=== PATIENT | female | born 1955 | race Hispanic/Latino ===

== ENCOUNTER 2018-02-16 08:04 | Day surgery (SDC) | payer MEDICARE ==
[~2018-02-16] VITALS: Ht 165.1 cm; Wt 69.0 kg
[~2018-02-16 08:04] MED LIST: NAPR-1000 PO; SODIUM CHLORIDE 0.9% 1000ML 1,000 ML IV ONE; VITA1CAP85 PO
[2018-02-16 09:16] VITALS: BP 111/64
[2018-02-16] MEDS ORDERED: LIDOCAINE HCL 2% 20ML ONE (10:02)
[2018-02-16] MEDS ORDERED: PROPOFOL 10 MG/ML 20ML VIAL IV ONE (10:02)
[2018-02-16 10:54] VITALS: BP 87/48
[2018-02-16 11:00] VITALS: BP 95/50
[2018-02-16 11:05] VITALS: BP 105/57
== END 2018-02-16 11:25 | disposition home or self-care (01) ==
LOC: DAH 08:04 → ENDO 08:04
PROVIDERS: ATTEND Internal Medicine
DX: K29.50 Unspecified chronic gastritis without bleeding (principal); K31.89 Other diseases of stomach and duodenum; K21.0 Gastro-esophageal reflux disease with esophagitis; M06.9 Rheumatoid arthritis, unspecified; Z85.3 Personal history of malignant neoplasm of breast; K21.9 Gastro-esophageal reflux disease without esophagitis; M81.0 Age-related osteoporosis without current pathological fracture; Z79.899 Other long term (current) drug therapy; Z98.890 Other specified postprocedural states; Z83.3 Family history of diabetes mellitus; Z98.84 Bariatric surgery status
CPT/HCPCS: 43237; 43239; 88305; 88312; 88341; 88342; A4606; J2704; J3490; J7030; 43231

== ENCOUNTER 2018-12-08 05:35 | Day surgery (SDC) | payer MEDICARE ==
[~2018-12-08] VITALS: Ht 160 cm; Wt 72.6 kg
[2018-12-08] VITALS (10 sets, daily range): BP systolic 72–140; BP diastolic 41–76
[~2018-12-08 05:35] MED LIST changes: +CALC-911 PO; +GLUC-145 PO; +OMEP40CA13 PO; -SODIUM CHLORIDE 0.9% 1000ML 1,000 ML IV ONE; -VITA1CAP85 PO; +VITA400C73 PO
[2018-12-08] MEDS ORDERED: SODIUM CHLORIDE 0.9% 1000ML 1,000 ML IV ONE (05:44)
[2018-12-08 06:21] LABS: BASOPHILS % (AUTO) 0.6 % (0.0-5.0); EOSINOPHILS % (AUTO) 3.3 % (0.0-8.0); LYMPHOCYTES % (AUTO) 36.9 % (21.0-51.0); MEAN CORPUSCULAR HEMOGLOBIN 31.2 pg (27.0-33.0); MEAN CORPUSCULAR HGB CONC 34.2 g/dL (32.0-36.0); MEAN CORPUSCULAR VOLUME 91.3 fL (79-99); MONOCYTES % (AUTO) 8.1 % (3.0-13.0); NEUTROPHILS % (AUTO) 51.1 % (40.0-77.0); NUCLEATED RED BLOOD CELLS 0.1 % (0.0-0.19); PLATELET COUNT (AUTO) 266 K/uL (130-400); RED BLOOD CELL COUNT(AUTO) 4.82 MIL/uL (4.00-5.50); RED CELL DISTRIBUTION WIDTH 13.3 % (11.0-15.5); WHITE BLOOD COUNT (AUTO) 6.4 K/uL (4.8-10.8)
[2018-12-08] MEDS ORDERED: GLYCOPYRROLATE 0.2 MG/ML 5 ML VIAL ONE (06:33)
[2018-12-08] MEDS ORDERED: PROPOFOL 10 MG/ML 20ML VIAL IV ONE (06:33)
[2018-12-08 06:54] LABS: INR 0.97 (0.85-1.15); PROTHROMBIN TIME 10.2 SEC (9.6-11.6)
== END 2018-12-08 07:45 | disposition home or self-care (01) ==
LOC: DAH 05:35 → ENDO 05:35
PROVIDERS: ATTEND Internal Medicine
DX: D49.0 Neoplasm of unspecified behavior of digestive system (principal); R14.0 Abdominal distension (gaseous); M06.9 Rheumatoid arthritis, unspecified; K21.9 Gastro-esophageal reflux disease without esophagitis; C50.919 Malignant neoplasm of unspecified site of unspecified female breast; M81.0 Age-related osteoporosis without current pathological fracture; Z88.5 Allergy status to narcotic agent; Z79.899 Other long term (current) drug therapy; Z72.89 Other problems related to lifestyle; Z98.890 Other specified postprocedural states; Z83.3 Family history of diabetes mellitus; Z80.3 Family history of malignant neoplasm of breast
CPT/HCPCS: 36415; 43236; 43238; 85025; 85610; 88108; 88173; 88305; A4215 ×2; A4221; A4222; A4223; A4606; A4615; A4657; A4663; J2704; J3490; J7030

== ENCOUNTER 2019-12-12 05:55 | Day surgery (SDC) | payer OTHER ==
[~2019-12-12] VITALS: Ht 160 cm; Wt 71.2 kg
[~2019-12-12 05:55] MED LIST changes: -VITA400C73 PO
[2019-12-12] MEDS ORDERED: SODIUM CHLORIDE 0.9% 1000ML 1,000 ML IV ONE (06:20)
[2019-12-12 07:20] VITALS: BP 115/58
[2019-12-12] MEDS ORDERED: PROPOFOL 10 MG/ML 20ML VIAL IV ONE (08:42)
[2019-12-12 09:25] VITALS: BP 97/58
[2019-12-12 09:30] VITALS: BP 98/60
[2019-12-12 09:35] VITALS: BP 102/58
[2019-12-12 09:40] VITALS: BP 110/62
== END 2019-12-12 10:05 | disposition home or self-care (01) ==
LOC: DAH 05:55
PROVIDERS: ATTEND Internal Medicine Gastroenterology
DX: D49.0 Neoplasm of unspecified behavior of digestive system (principal); K29.50 Unspecified chronic gastritis without bleeding; K31.89 Other diseases of stomach and duodenum; K92.9 Disease of digestive system, unspecified; K21.9 Gastro-esophageal reflux disease without esophagitis; K80.20 Calculus of gallbladder without cholecystitis without obstruction; K57.30 Diverticulosis of large intestine without perforation or abscess without bleeding; R93.3 Abnormal findings on diagnostic imaging of other parts of digestive tract; Z20.828 Contact with and (suspected) exposure to other viral communicable diseases; Z85.3 Personal history of malignant neoplasm of breast; M06.9 Rheumatoid arthritis, unspecified; M81.0 Age-related osteoporosis without current pathological fracture; Z90.12 Acquired absence of left breast and nipple
CPT/HCPCS: 36415; 43238; 43239; A4215 ×2; A4221; A4222; A4223; A4606; A4620; A4663; C9803; J2704; J7030; U0003

== ENCOUNTER 2022-07-14 06:09 | Day surgery (SDC) | payer OTHER ==
[2022-07-09 12:21] VITALS: BP 130/68
[2022-07-09 12:39] LABS: BASOPHILS % (AUTO) 0.7 % (0.0-5.0); EOSINOPHILS % (AUTO) 2.2 % (0.0-8.0); LYMPHOCYTES % (AUTO) 37.4 % (21.0-51.0); MEAN CORPUSCULAR HEMOGLOBIN 32.4 pg (27.0-33.0); MEAN CORPUSCULAR HGB CONC 32.8 g/dL (32.0-36.0); MEAN CORPUSCULAR VOLUME 98.9 fL (79-99); NEUTROPHILS % (AUTO) 51.6 % (40.0-77.0); PLATELET COUNT (AUTO) 251 K/uL (130-400); RED BLOOD CELL COUNT(AUTO) 4.75 MIL/uL (4.00-5.50); RED CELL DISTRIBUTION WIDTH 13.7 % (11.0-15.5); WHITE BLOOD COUNT (AUTO) 7.2 K/uL (4.8-10.8)
[2022-07-09 12:47] LABS: INR 0.93 (0.85-1.15); PROTHROMBIN TIME 9.9 SEC (9.6-11.6)
[2022-07-09 12:48] LABS: PARTIAL THROMBOPLASTIN TIME 29.3 SEC (26.3-35.5)
[2022-07-09 12:51] LABS: ALBUMIN 4.1 g/dL (3.5-5.0); CREATININE 0.8 mg/dL (0.5-1.5); POTASSIUM 4.2 mmol/L (3.5-5.1); TOTAL PROTEIN, SERUM 7.9 g/dL (6.0-8.3)
[~2022-07-14] VITALS: Ht 160 cm; Wt 66.6 kg
[2022-07-14] VITALS (17 sets, daily range): BP systolic 131–157; BP diastolic 58–86
[~2022-07-14 06:09] MED LIST changes: +BISA-151 PO; -CALC-911 PO; +ETAN25SY SQ; -GLUC-145 PO; +METH2.5T6 PO; -NAPR-1000 PO; -OMEP40CA13 PO; +OMEP40CA21 PO
[2022-07-14] MEDS ORDERED: INVANZ 1GM+NS 50ML IVPB 50 ML IV SCH (07:00)
[2022-07-14] MEDS ORDERED: LACTATED RINGERS 1000ML 1,000 ML IV SCH (07:00)
[2022-07-14] MEDS ORDERED: HYDROMORPHONE 1 MG INJ ONE (07:21)
[2022-07-14] MEDS ORDERED: FAMOTIDINE 20MG VIAL IV ONE (07:21)
[2022-07-14] MEDS ORDERED: LIDOCAINE 1%-EPI 1:100,000 20 ML VIAL IJ ONE (07:28)
[2022-07-14] MEDS ORDERED: BUPIVACAINE/PF 0.5% 10ML VIAL ONE (07:28)
[2022-07-14] MEDS ORDERED: GLYCOPYRROLATE 1 MG/5 ML SYRINGE ONE (07:39)
[2022-07-14] MEDS ORDERED: ROCURONIUM 10MG/1ML SYR 10 MG/ML ML ONE (07:39)
[2022-07-14] MEDS ORDERED: PROPOFOL 10 MG/ML 20ML VIAL IV ONE (07:39)
[2022-07-14] MEDS ORDERED: LIDOCAINE PF 100MG/5ML (2%) SYRINGE 5ML ONE (07:39)
[2022-07-14] MEDS ORDERED: MIDAZOLAM HCL 1 MG/ML 2ML VIAL ONE (07:40)
[2022-07-14] MEDS ORDERED: FENTANYL CITRATE PF 50 MCG/1 ML 2ML VIAL ONE (07:40)
[2022-07-14] MEDS ORDERED: ONDANSETRON 4MG INJ ONE ×2 (07:56→09:28)
[2022-07-14] MEDS ORDERED: LIDOCAINE 2%-EPI 1:200,000 20 ML VIAL IJ ONE (08:01)
[2022-07-14] MEDS ORDERED: BUPIVACAINE/PF 0.5% 30ML VIAL INJ ONE (08:02)
[2022-07-14] MEDS ORDERED: NEOSTIGMINE 5MG/5ML SYR IV ONE (08:41)
[2022-07-14] MEDS ORDERED: DiphenhydrAMINE HCL 50 MG/ML VIAL ONE (09:48)
== END 2022-07-14 10:45 | disposition home or self-care (01) ==
LOC: DAH 06:09
PROVIDERS: ATTEND Surgery
DX: K38.8 Other specified diseases of appendix (principal); Z20.822 Contact with and (suspected) exposure to COVID-19; K35.80 Unspecified acute appendicitis; K21.9 Gastro-esophageal reflux disease without esophagitis; M06.9 Rheumatoid arthritis, unspecified; M81.0 Age-related osteoporosis without current pathological fracture; Z86.010 Personal history of colon polyps; Z80.3 Family history of malignant neoplasm of breast; Z82.3 Family history of stroke; Z83.3 Family history of diabetes mellitus; Z79.899 Other long term (current) drug therapy; Z79.01 Long term (current) use of anticoagulants
CPT/HCPCS: 80053; 85025; 85610; 85730; 86850 ×2; 86900 ×2; 86901 ×2; 87426; 36415 ×2; 93005; 44970; A6260; A4663; J7030; A4344; A4215 ×2; J1200; J3490 ×6; J3010; J1170; J2710; J2001; J2250; J2704; J2405 ×2; J1335; G0168; A4649; A4223; A4222; A4221